=== PATIENT | male | born 1990 | race Caucasian/White ===

== ENCOUNTER 2019-02-08 11:48 | Emergency (ER) | payer OTHER ==
[~2019-02-08] VITALS: Ht 180.3 cm; Wt 100.0 kg
[2019-02-08 11:53] VITALS: BP 169/90; PULSE 99; RESP 16; Ht 180.3 cm; Wt 100.0 kg
[2019-02-08] MEDS ORDERED: MED4DP PO (13:14)
[2019-02-08] MEDS ORDERED: ONDA4TAB14 PO (13:14)
[2019-02-08] MEDS ORDERED: PSEU-79 PO (13:14)
[2019-02-08] MEDS ORDERED: AMOX1TAB10 PO (13:14)
--- NOTE | 2019-02-08 15:26 | ERD ---
ER Documentation Chief Complaint Chief Complaint pt is bib self with c/o sinus congestion, and diarrhea for a few days HPI 28-year-old male presenting with sinus congestion. Patient states that he has had this for the last 2-3 weeks and states he is worsening. He has a lot of sinus pressure. Has not had any fevers. Has not taken medications for his symptoms. Patient also describes some abdominal nausea which he feels is exacerbated by postnasal drip. Denies medical problems. NKDA. Surgical history foot surgery. Social history smokes 40 cigarettes a day. ROS All systems reviewed and are negative except as per history of present illness. Medications Home Meds Active Scripts Ondansetron (Ondansetron Odt) 4 Mg Tab.rapdis, 4 MG PO Q6H PRN for NAUSEA AND/OR VOMITING, #10 TAB Prov:JAVI SMITH PA-C 02/08/19 Pseudoephedrine Hcl* (Suphedrin*) 30 Mg Tablet, 30 MG PO Q6 PRN for CONGESTION, #30 TAB Prov:JAVI SMITH PA-C 02/08/19 Methylprednisolone* (Medrol* DOSE PACK) 4 Mg/Dose-Pack Tab.ds.pk, 4 MG PO . DIRECTED, #1 PACKET Prov:JAVI SMITH PA-C 02/08/19 Amoxicillin/Potassium Clav (Amox-Clav 875-125 mg Tablet) 875-125 mg Tab, 1 TAB PO BID for 7 Days, #14 TAB Prov:JAVI SMITH PA-C 02/08/19 Allergies Allergies: Coded Allergies: No Known Allergy (Unverified , 02/08/19) PMhx/Soc Medical and Surgical Hx: pt denies Medical Hx, pt denies Surgical Hx Hx Alcohol Use: No Hx Substance Use: No Hx Tobacco Use: No Smoking Status: Never smoker FmHx Family History: No diabetes, No coronary disease, No other Physical Exam Vitals Vital Signs Date Temp Pulse Resp B/P (MAP) Pulse Ox O2 O2 Flow FiO2 Time Delivery Rate 02/08/19 98.3 99 16 169/90 100 11:53 (116) Physical Exam GENERAL: The patient is well-appearing, well-nourished, in no acute distress HEENT: Atraumatic. Conjunctivae are pink. Pupils equal, round, and reactive to light. There is no scleral icterus. Tympanic membranes clear bilaterally. Oropharynx clear. Nasal congestion noted with sinus pressure NECK: C-spine is soft and supple. There is no meningismus. There is no cervical lymphadenopathy. CHEST: Clear to auscultation bilaterally. There are no rales, wheezes or rhonchi. HEART: Regular rate and rhythm. No murmurs, clicks, rubs or gallops. Procedures/MDM MDM: 28-year-old male presenting with sinus congestion. Patient be treated with supportive medications and antibiotics given her last to 3 weeks. Told symptoms change or worsen to return immediately to the ER. All questions answered at discharge Departure Diagnosis: Primary Impression: Sinusitis Condition: Stable Patient Instructions: Sinusitis, Abx Tx Referrals: [facility] YOU HAVE RECEIVED A MEDICAL SCREENING EXAM AND THE RESULTS INDICATE THAT YOU DO NOT HAVE A CONDITION THAT REQUIRES URGENT TREATMENT IN THE EMERGENCY DEPARTMENT. FURTHER EVALUATION AND TREATMENT OF YOUR CONDITION CAN WAIT UNTIL YOU ARE SEEN IN YOUR DOCTORS OFFICE WITHIN THE NEXT 1-2 DAYS. IT IS YOUR RESPONSIBILITY TO MAKE AN APPOINTMENT FOR FOLOW-UP CARE. IF YOU HAVE A PRIMARY DOCTOR --you should call your primary doctor and schedule an appointment IF YOU DO NOT HAVE A PRIMARY DOCTOR YOU CAN CALL OUR PHYSICIAN REFERRAL HOTLINE AT IF YOU CAN NOT AFFORD TO SEE A PHYSICIAN YOU CAN CHOSE FROM THE FOLLOWING [facility] [id number] [facility] [address] [facility] [address] [facility] [address] [facility] [address] [facility]. [facility]. [address] Additional Instructions: FOLLOW UP WITH YOUR PRIMARY CARE PHYSICIAN TOMORROW.Return to this facility if you are not improving as expected. JAVI SMITH PA-C Feb 08, 2019 15:26
== END 2019-02-08 14:08 | disposition home or self-care (01) ==
LOC: FTE 11:48
DX: J32.9 Chronic sinusitis, unspecified (principal)
CPT/HCPCS: 99283